=== PATIENT | male | born 1980 | race Caucasian/White ===

== ENCOUNTER → 2016-11-08 | Outpatient (CLI) | payer OTHER ==
[~2016-11-08] MED LIST: AMOXICILLIN500 MG PO; ANAPROX DS550 MG PO; ASPIRIN ADULT L81 M1 PO; AUGMENTIN 875 M1 TAB PO; BACTRIM DS 8001 TA1 PO; CEPHALEXIN500 M1 PO; CIPRO500 MG PO; CLEOCIN HCL300 MG PO; CLEOCIN150 MG PO; CLINDAMYCIN150 MG PO; COUMADIN4 M2 PO; DAYPRO600 M1 PO; HYDROCODONE BIT1 T11 PO; KEFLEX500 MG PO; MOTRIN600 MG PO; MOTRIN800 MG PO; NAPROSYN500 MG PO; NEURONTIN100 MG PO; NKHM PO; NO DAILY MEDS; NORCO 325 MG-51 TAB PO; PHENERGAN W/DM120 ML PO; PLAVIX75 MG PO; PROVENTIL0.09 MG/AC IH; TRAZODONE50 MG PO; ZITHROMAX Z PA250 MG PO
== END | disposition home or self-care (01) ==
LOC: RAD 09:46
DX: M85.88 Other specified disorders of bone density and structure, other site (principal); Z89.511 Acquired absence of right leg below knee

== ENCOUNTER 2017-06-04 18:22 | Emergency (ER) | payer OTHER ==
[~2017-06-04] VITALS: Ht 182.8 cm; Wt 72.6 kg
== END 2017-06-04 20:29 | disposition home or self-care (01) ==
LOC: ED 18:22
DX: S82.091A Other fracture of right patella, initial encounter for closed fracture (principal); F17.200 Nicotine dependence, unspecified, uncomplicated; Z79.899 Other long term (current) drug therapy; W01.198A Fall on same level from slipping, tripping and stumbling with subsequent striking against other object, initial encounter; Y93.89 Activity, other specified; Y92.89 Other specified places as the place of occurrence of the external cause; Y99.8 Other external cause status

== ENCOUNTER 2018-05-31 11:45 | Emergency (ER) | payer MEDICARE ==
[~2018-05-31] VITALS: Ht 182.8 cm; Wt 72.6 kg
[2018-05-31] MEDS ORDERED: AMOXICILLIN500 M2 PO (13:51)
[2018-05-31] MEDS ORDERED: LIDEX 0.05% CRE15 GM T (13:51)
[2018-05-31] MEDS ORDERED: FLONASE ALLERG9.9 ML NAS (13:51)
== END 2018-05-31 13:58 | disposition home or self-care (01) ==
LOC: ED 11:45
DX: J01.90 Acute sinusitis, unspecified (principal); L25.9 Unspecified contact dermatitis, unspecified cause; F17.200 Nicotine dependence, unspecified, uncomplicated; Z79.01 Long term (current) use of anticoagulants

== ENCOUNTER → 2018-07-12 | Outpatient (CLI) | payer MEDICAID ==
[~2018-07-12] MED LIST changes: +AMOXICILLIN500 M2 PO; +FLONASE ALLERG9.9 ML NAS; +LIDEX 0.05% CRE15 GM T
== END | disposition home or self-care (01) ==
LOC: RAD 10:51
DX: I82.409 Acute embolism and thrombosis of unspecified deep veins of unspecified lower extremity (principal); M25.532 Pain in left wrist

== ENCOUNTER 2019-03-25 15:04 | Emergency (ER) | payer MEDICAID ==
[~2019-03-25] VITALS: Ht 182.8 cm; Wt 68.0 kg
[2019-03-25] MEDS ORDERED: CEPHALEXIN500 M1 PO (15:36)
== END 2019-03-25 15:44 | disposition home or self-care (01) ==
LOC: ED 15:04
DX: L03.011 Cellulitis of right finger (principal); L03.012 Cellulitis of left finger; Z79.899 Other long term (current) drug therapy; Z79.01 Long term (current) use of anticoagulants; Z89.511 Acquired absence of right leg below knee

== ENCOUNTER 2019-05-03 07:20 | Emergency (ER) | payer OTHER ==
[~2019-05-03] VITALS: Ht 182.8 cm; Wt 72.6 kg
[2019-05-03] MEDS ORDERED: TRIPLE ANTIB28.35 GM T (08:55)
== END 2019-05-03 09:07 | disposition home or self-care (01) ==
LOC: ED 07:20
DX: S80.11XA Contusion of right lower leg, initial encounter (principal); Z89.511 Acquired absence of right leg below knee; Z79.01 Long term (current) use of anticoagulants; Z79.2 Long term (current) use of antibiotics; Z79.899 Other long term (current) drug therapy; Z87.891 Personal history of nicotine dependence; W18.30XA Fall on same level, unspecified, initial encounter; Y93.89 Activity, other specified; Y92.098 Other place in other non-institutional residence as the place of occurrence of the external cause; Y99.8 Other external cause status

== ENCOUNTER 2020-08-03 07:54 | Inpatient (IN) | payer OTHER ==
[~2020-08-03] VITALS: Ht 182.9 cm; Wt 73.6 kg
[~2020-08-03 07:54] MED LIST changes: +TRIPLE ANTIB28.35 GM T
[2020-08-03 08:07] VITALS: BP 136/98
[2020-08-03 09:27] LABS: BASO # 0.1 10*3/uL (0.0-0.1); BASO % 0.7 % (0.0-1.0); EOS # 0.5 10*3/uL (0.0-0.4); EOS % 5.5 % (1.0-4.0); HEMATOCRIT 39.3 % (42.0-52.0); LYMPH # 2.4 10*3/uL (1.3-4.4); LYMPH % 29.1 % (27.0-41.0); MEAN CELL VOLUME 80.7 fl (80.0-94.0); MEAN CORPUSCULAR HGB 26.1 pg (27.0-31.0); MEAN CORPUSCULAR HGB CONC 32.3 g/dl (33.0-37.0); MEAN PLATELET VOLUME 9.2 fl (9.6-12.3); MONO # 0.7 10*3/uL (0.1-1.0); MONO % 8.3 % (3.0-9.0); NEUT # 4.6 10*3/uL (2.3-7.9); NEUT % 56.2 % (47.0-73.0); PLATELET COUNT AUTOMATED 360 10*3/uL (130-400); RED BLOOD COUNT 4.87 10*6/uL (4.50-5.90); RED CELL DISTRI WIDTH 17.1 % (0-14.5); WHITE BLOOD COUNT 8.2 10*3/uL (4.8-10.8)
[2020-08-03 09:38] LABS: ACT PARTIAL THROMBO TIME 25.6 SECONDS (20.0-32.1)
[2020-08-03 09:42] LABS: ALBUMIN 3.6 gm/dl (3.1-4.5); ALKALINE PHOSPHATASE 79 U/L (45-117); BUN 9 mg/dl (7-24); CHLORIDE 102 mmol/L (98-107); CREATININE 1.19 mg/dL (0.70-1.30); POTASSIUM 3.1 mmol/L (3.5-5.1); SGOT/AST 48 IU/L (3-35); SGPT/ALT 22 U/L (12-78); SODIUM 134 mmol/L (136-145); TOTAL PROTEIN 7.7 gm/dL (6.4-8.2)
[2020-08-03 10:53] VITALS: BP 140/92
[2020-08-03] MEDS ORDERED: GABAPENTIN800 MG PO (16:17)
[2020-08-03] MEDS ORDERED: ASPIRIN CHEWABL81 MG PO (16:18)
[2020-08-03] MEDS ORDERED: OMEPRAZOLE20 M2 PO (16:18)
[2020-08-03 18:00] VITALS: BP 140/92
[2020-08-03 20:00] VITALS: BP 136/85
[2020-08-04] VITALS: BP 122/78
[2020-08-04 06:45] LABS: BASO # 0.1 10*3/uL (0.0-0.1); EOS # 0.3 10*3/uL (0.0-0.4); EOS % 3.8 % (1.0-4.0); LYMPH # 2.3 10*3/uL (1.3-4.4); LYMPH % 25.8 % (27.0-41.0); MEAN CELL VOLUME 81.6 fl (80.0-94.0); MEAN CORPUSCULAR HGB 26.1 pg (27.0-31.0); MEAN CORPUSCULAR HGB CONC 31.9 g/dl (33.0-37.0); MEAN PLATELET VOLUME 9.6 fl (9.6-12.3); MONO # 0.7 10*3/uL (0.1-1.0); MONO % 7.8 % (3.0-9.0); NEUT # 5.4 10*3/uL (2.3-7.9); NEUT % 61.4 % (47.0-73.0); PLATELET COUNT AUTOMATED 363 10*3/uL (130-400); RED BLOOD COUNT 4.41 10*6/uL (4.50-5.90); RED CELL DISTRI WIDTH 17.2 % (0-14.5); WHITE BLOOD COUNT 8.8 10*3/uL (4.8-10.8)
[2020-08-04 07:11] LABS: ALBUMIN 3.2 gm/dl (3.1-4.5); BUN 8 mg/dl (7-24); CHLORIDE 110 mmol/L (98-107); POTASSIUM 3.5 mmol/L (3.5-5.1); SGOT/AST 32 IU/L (3-35); SGPT/ALT 21 U/L (12-78); SODIUM 139 mmol/L (136-145); TOTAL PROTEIN 6.9 gm/dL (6.4-8.2); TRIGLYCERIDES 109 mg/dl (<150); VLDL CHOLESTEROL 22 mg/dL (6-40)
[2020-08-04 07:13] LABS: ALKALINE PHOSPHATASE 70 U/L (45-117); CHOLESTEROL 155 mg/dL (<200); HDL CHOLESTEROL 43 mg/dl (40-60); LDL CHOLESTEROL 90 mg/dL (9-159)
[2020-08-04 08:10] VITALS: BP 140/96
[2020-08-04 12:00] VITALS: BP 156/96
[2020-08-04 16:00] VITALS: BP 147/92
== END 2020-08-04 16:23 | disposition left against medical advice (07) | DRG 349 ==
LOC: ED 07:54 → EDHOLD 09:06 → 5E 09:06 → EDHOLD 11:23 → 5E 16:25
PROVIDERS: Emergency Medicine; ADMIT Student in an Organized Health Care Education/Training Program; ATTEND Student in an Organized Health Care Education/Training Program
DX: T87.42 Infection of amputation stump, left upper extremity (principal); D64.9 Anemia, unspecified; E87.6 Hypokalemia; R79.82 Elevated C-reactive protein (CRP); F17.210 Nicotine dependence, cigarettes, uncomplicated; R00.0 Tachycardia, unspecified; Y83.5 Amputation of limb(s) as the cause of abnormal reaction of the patient, or of later complication, without mention of misadventure at the time of the procedure; Z20.822 Contact with and (suspected) exposure to COVID-19; Z53.29 Procedure and treatment not carried out because of patient's decision for other reasons; N02.8 Recurrent and persistent hematuria with other morphologic changes; Z89.511 Acquired absence of right leg below knee; Z71.6 Tobacco abuse counseling; Z79.82 Long term (current) use of aspirin; Z79.899 Other long term (current) drug therapy; Y92.89 Other specified places as the place of occurrence of the external cause; L03.012 Cellulitis of left finger

== ENCOUNTER 2021-01-31 11:00 | Observation (INO) | payer OTHER ==
[~2021-01-31] VITALS: Ht 182.9 cm; Wt 77.1 kg
[~2021-01-31 11:00] MED LIST changes: +ASPIRIN CHEWABL81 MG PO; +GABAPENTIN800 MG PO; +OMEPRAZOLE20 M2 PO
[2021-01-31 11:07] VITALS: BP 153/90
[2021-01-31 11:41] LABS: BASO # 0.1 10*3/uL (0.0-0.1); BASO % 0.7 % (0.0-1.0); EOS # 0.7 10*3/uL (0.0-0.4); EOS % 5.2 % (1.0-4.0); HEMATOCRIT 48.3 % (42.0-52.0); LYMPH # 2.3 10*3/uL (1.3-4.4); LYMPH % 16.9 % (27.0-41.0); MEAN CELL VOLUME 89.3 fl (80.0-94.0); MEAN CORPUSCULAR HGB 29.9 pg (27.0-31.0); MEAN CORPUSCULAR HGB CONC 33.5 g/dl (33.0-37.0); MEAN PLATELET VOLUME 9.4 fl (9.6-12.3); MONO # 1.1 10*3/uL (0.1-1.0); MONO % 8.5 % (3.0-9.0); NEUT # 9.1 10*3/uL (2.3-7.9); NEUT % 68.3 % (47.0-73.0); PLATELET COUNT AUTOMATED 390 10*3/uL (130-400); RED BLOOD COUNT 5.41 10*6/uL (4.50-5.90); RED CELL DISTRI WIDTH 13.7 % (0-14.5); WHITE BLOOD COUNT 13.4 10*3/uL (4.8-10.8)
[2021-01-31] MEDS ORDERED: ZOFRAN4 MG PO (11:55)
[2021-01-31 11:57] LABS: ALBUMIN 3.8 gm/dl (3.1-4.5); ALKALINE PHOSPHATASE 100 U/L (45-117); BUN 6 mg/dl (7-24); CHLORIDE 98 mmol/L (98-107); CREATININE 1.14 mg/dL (0.70-1.30); LIPASE 100 U/L (73-393); POTASSIUM 3.4 mmol/L (3.5-5.1); SGOT/AST 25 IU/L (3-35); SGPT/ALT 43 U/L (12-78); SODIUM 136 mmol/L (136-145); TOTAL PROTEIN 8.9 gm/dL (6.4-8.2)
[2021-01-31 14:24] LABS: BILIRUBIN Negative (Negative); BLOOD Negative (Negative); CLARITY Clear (Clear); COLOR Yellow (Yellow); GLUCOSE Negative (Negative); KETONE Negative (Negative); LEUKO ESTERASE Negative (Negative); NITRITE Negative (Negative); PH 6.5 (4.5-8.0)
[2021-01-31 14:31] LABS: BACTERIA TRACE; EPITHELIAL CELLS 0-2; RBC 0-2 rbc/hpf (0-2); WBC 0-2 wbc/hpf (0-5)
[2021-01-31 14:32] LABS: URINE AMPHETAMINES < 1000 (1000ng/ml); URINE BARBITURATES < 200 (200ng/ml); URINE BENZODIAZEPINES < 200 (200ng/ml); URINE CANNABINOIDS (THC) > 50 (50ng/ml); URINE COCAINE > 300 (300ng/ml); URINE METHADONE < 300 (300ng/ml); URINE OPIATES < 300 (300ng/ml)
[2021-01-31 14:38] LABS: URINE PHENCYCLIDINE < 25 (25ng/ml)
[2021-01-31 15:30] VITALS: BP 144/87
[2021-01-31 20:07] VITALS: BP 132/72
[2021-02-01 06:27] LABS: BASO # 0.1 10*3/uL (0.0-0.1); BASO % 1.1 % (0.0-1.0); EOS # 0.7 10*3/uL (0.0-0.4); EOS % 6.9 % (1.0-4.0); HEMATOCRIT 41.1 % (42.0-52.0); LYMPH # 2.6 10*3/uL (1.3-4.4); LYMPH % 25.1 % (27.0-41.0); MEAN CORPUSCULAR HGB 29.7 pg (27.0-31.0); MEAN CORPUSCULAR HGB CONC 33.3 g/dl (33.0-37.0); MEAN PLATELET VOLUME 9.5 fl (9.6-12.3); MONO # 0.9 10*3/uL (0.1-1.0); MONO % 8.8 % (3.0-9.0); NEUT % 57.6 % (47.0-73.0); PLATELET COUNT AUTOMATED 350 10*3/uL (130-400); RED BLOOD COUNT 4.62 10*6/uL (4.50-5.90); WHITE BLOOD COUNT 10.4 10*3/uL (4.8-10.8)
[2021-02-01 06:43] LABS: ALBUMIN 2.9 gm/dl (3.1-4.5); ALKALINE PHOSPHATASE 74 U/L (45-117); BUN 6 mg/dl (7-24); CHLORIDE 106 mmol/L (98-107); CREATININE 0.92 mg/dL (0.70-1.30); POTASSIUM 3.7 mmol/L (3.5-5.1); SGOT/AST 14 IU/L (3-35); SGPT/ALT 32 U/L (12-78); SODIUM 141 mmol/L (136-145)
[2021-02-01] MEDS ORDERED: DELZICOL400 M2 PO ×2 (10:44)
[2021-02-01] MEDS ORDERED: METRONIDAZOLE500 M1 PO ×2 (10:44)
[2021-02-01] MEDS ORDERED: CIPROFLOXACIN500 M4 PO ×2 (10:44)
[2021-02-01 12:00] VITALS: BP 182/95
== END 2021-02-01 14:17 | disposition home or self-care (01) ==
LOC: ED 11:00 → 5E 15:16 → EDHOLD 15:16 → 5E 02-01 07:17
PROVIDERS: Emergency Medicine; Internal Medicine; ADMIT Family Medicine; ATTEND Family Medicine
DX: K52.9 Noninfective gastroenteritis and colitis, unspecified (principal); E87.2 Acidosis; E87.6 Hypokalemia; F14.10 Cocaine abuse, uncomplicated; F15.10 Other stimulant abuse, uncomplicated; F12.10 Cannabis abuse, uncomplicated; D72.829 Elevated white blood cell count, unspecified; E44.1 Mild protein-calorie malnutrition; N40.0 Benign prostatic hyperplasia without lower urinary tract symptoms; N02.8 Recurrent and persistent hematuria with other morphologic changes; R79.89 Other specified abnormal findings of blood chemistry; F17.210 Nicotine dependence, cigarettes, uncomplicated; Z79.899 Other long term (current) drug therapy; Z71.6 Tobacco abuse counseling; Z79.01 Long term (current) use of anticoagulants

== ENCOUNTER → 2021-03-11 | Day surgery (SDC) | payer OTHER ==
[~2021-03-11] VITALS: Ht 182.8 cm; Wt 77.1 kg
[~2021-03-11] MED LIST changes: +CIPROFLOXACIN500 M4 PO; +DELZICOL400 M2 PO; +METRONIDAZOLE500 M1 PO; +ZOFRAN4 MG PO
== END | disposition home or self-care (01) ==
LOC: SDC 03-08 08:00
PROVIDERS: ATTEND Surgery
DX: Z01.818 Encounter for other preprocedural examination (principal); Z20.822 Contact with and (suspected) exposure to COVID-19

== ENCOUNTER 2021-04-14 15:26 | Emergency (ER) | payer OTHER ==
[~2021-04-14] VITALS: Ht 182.8 cm; Wt 77.1 kg
[2021-04-14] MEDS ORDERED: NAPROXEN250 MG PO ×2 (17:09)
[2021-04-14] MEDS ORDERED: SEPTDS PO ×2 (17:09)
[2021-04-14] MEDS ORDERED: TYLENOL325 M1 PO ×2 (17:09)
[2021-05-06] MEDS ORDERED: PERCOCET 5-3251 EACH PO (08:29)
== END 2021-04-14 17:17 | disposition home or self-care (01) ==
LOC: ED 15:26
DX: I73.1 Thromboangiitis obliterans [Buerger's disease] (principal); L08.9 Local infection of the skin and subcutaneous tissue, unspecified; F17.200 Nicotine dependence, unspecified, uncomplicated; Z79.899 Other long term (current) drug therapy; Z79.82 Long term (current) use of aspirin; Z98.890 Other specified postprocedural states

== ENCOUNTER → 2021-05-06 | Day surgery (SDC) | payer OTHER ==
[2021-05-05 14:50] LABS: BASO # 0.1 10*3/uL (0.0-0.1); BASO % 1.1 % (0.0-1.0); EOS # 0.2 10*3/uL (0.0-0.4); EOS % 2.7 % (1.0-4.0); LYMPH # 2.7 10*3/uL (1.3-4.4); LYMPH % 32.5 % (27.0-41.0); MEAN CELL VOLUME 89.1 fl (80.0-94.0); MEAN CORPUSCULAR HGB 29.2 pg (27.0-31.0); MEAN CORPUSCULAR HGB CONC 32.8 g/dl (33.0-37.0); MEAN PLATELET VOLUME 9.8 fl (9.6-12.3); MONO # 0.6 10*3/uL (0.1-1.0); MONO % 7.4 % (3.0-9.0); NEUT # 4.7 10*3/uL (2.3-7.9); NEUT % 56.2 % (47.0-73.0); PLATELET COUNT AUTOMATED 255 10*3/uL (130-400); RED BLOOD COUNT 4.49 10*6/uL (4.50-5.90); RED CELL DISTRI WIDTH 14.6 % (0-14.5); WHITE BLOOD COUNT 8.4 10*3/uL (4.8-10.8)
[2021-05-05 15:05] LABS: BUN 7 mg/dl (7-24); CHLORIDE 106 mmol/L (98-107); CREATININE 0.95 mg/dL (0.70-1.30); POTASSIUM 3.7 mmol/L (3.5-5.1); SODIUM 139 mmol/L (136-145)
[~2021-05-06] VITALS: Ht 182.8 cm; Wt 76.7 kg
[~2021-05-06] MED LIST changes: +NAPROXEN250 MG PO; +PERCOCET 5-3251 EACH PO; +SEPTDS PO; +TYLENOL325 M1 PO
[2021-05-06 06:45] VITALS: BP 138/92
[2021-05-06 08:09] VITALS: BP 118/78
[2021-05-06 08:24] VITALS: BP 127/82
[2021-05-06 08:39] VITALS: BP 119/77
== END | disposition home or self-care (01) ==
LOC: SDC 05-05 08:45
PROVIDERS: ATTEND Orthopaedic Surgery
DX: N02.8 Recurrent and persistent hematuria with other morphologic changes (principal); I96 Gangrene, not elsewhere classified; K21.9 Gastro-esophageal reflux disease without esophagitis; F17.200 Nicotine dependence, unspecified, uncomplicated; Z79.899 Other long term (current) drug therapy

== ENCOUNTER 2021-08-13 13:24 | Emergency (ER) | payer OTHER ==
[~2021-08-13] VITALS: Ht 182.8 cm; Wt 72.6 kg
[2021-08-13 14:23] LABS: BASO # 0.1 10*3/uL (0.0-0.1); BASO % 0.3 % (0.0-1.0); EOS % 0.2 % (1.0-4.0); HEMATOCRIT 45.4 % (42.0-52.0); LYMPH # 1.5 10*3/uL (1.3-4.4); LYMPH % 8.3 % (27.0-41.0); MEAN CELL VOLUME 86.8 fl (80.0-94.0); MEAN CORPUSCULAR HGB 29.4 pg (27.0-31.0); MEAN CORPUSCULAR HGB CONC 33.9 g/dl (33.0-37.0); MEAN PLATELET VOLUME 9.4 fl (9.6-12.3); MONO # 1.1 10*3/uL (0.1-1.0); MONO % 5.7 % (3.0-9.0); NEUT # 15.9 10*3/uL (2.3-7.9); NEUT % 85.2 % (47.0-73.0); PLATELET COUNT AUTOMATED 312 10*3/uL (130-400); RED BLOOD COUNT 5.23 10*6/uL (4.50-5.90); WHITE BLOOD COUNT 18.6 10*3/uL (4.8-10.8)
[2021-08-13 14:40] LABS: ALKALINE PHOSPHATASE 81 U/L (45-117); BUN 14 mg/dl (7-24); CHLORIDE 101 mmol/L (98-107); CREATININE 1.02 mg/dL (0.70-1.30); LIPASE 180 U/L (73-393); POTASSIUM 3.6 mmol/L (3.5-5.1); SGOT/AST 21 IU/L (3-35); SGPT/ALT 21 U/L (12-78); SODIUM 136 mmol/L (136-145); TOTAL PROTEIN 8.5 gm/dL (6.4-8.2)
[2021-08-13 15:10] LABS: BILIRUBIN 1+ (Negative); BLOOD Negative (Negative); CLARITY Turbid (Clear); COLOR Dark Yellow (Yellow); GLUCOSE Negative (Negative); KETONE 3+ (Negative); LEUKO ESTERASE 1+ (Negative); NITRITE Negative (Negative); SPECIFIC GRAVITY >= 1.030 (1.001-1.030)
[2021-08-13 15:38] LABS: BACTERIA 1+; MUCOUS 2+; RBC 0-2 rbc/hpf (0-2)
[2021-08-13] MEDS ORDERED: ZOFRAN4 MG PO (17:10)
[2021-08-13] MEDS ORDERED: CEFUROXIME AXE500 MG PO (17:14)
== END 2021-08-13 17:35 | disposition home or self-care (01) ==
LOC: ED 13:24
PROVIDERS: Family Medicine
DX: A08.4 Viral intestinal infection, unspecified (principal); N39.0 Urinary tract infection, site not specified; Z79.899 Other long term (current) drug therapy; F17.200 Nicotine dependence, unspecified, uncomplicated

== ENCOUNTER 2021-09-07 11:56 | Emergency (ER) | payer OTHER ==
[~2021-09-07] VITALS: Ht 182.8 cm; Wt 74.8 kg
[~2021-09-07 11:56] MED LIST changes: +CEFUROXIME AXE500 MG PO
[2021-09-07] MEDS ORDERED: AMOX-CLAV 875-1 EACH PO (12:04)
[2021-09-07 15:09] LABS: BASO # 0.1 10*3/uL (0.0-0.1); BASO % 0.9 % (0.0-1.0); EOS # 0.5 10*3/uL (0.0-0.4); EOS % 4.8 % (1.0-4.0); HEMATOCRIT 44.5 % (42.0-52.0); LYMPH # 2.3 10*3/uL (1.3-4.4); LYMPH % 24.4 % (27.0-41.0); MEAN CELL VOLUME 89.2 fl (80.0-94.0); MEAN CORPUSCULAR HGB 29.5 pg (27.0-31.0); MEAN PLATELET VOLUME 9.1 fl (9.6-12.3); MONO # 0.8 10*3/uL (0.1-1.0); MONO % 8.1 % (3.0-9.0); NEUT # 5.8 10*3/uL (2.3-7.9); NEUT % 61.6 % (47.0-73.0); PLATELET COUNT AUTOMATED 315 10*3/uL (130-400); RED BLOOD COUNT 4.99 10*6/uL (4.50-5.90); RED CELL DISTRI WIDTH 14.8 % (0-14.5); WHITE BLOOD COUNT 9.4 10*3/uL (4.8-10.8)
[2021-09-07 15:28] LABS: ALKALINE PHOSPHATASE 78 U/L (45-117); BUN 7 mg/dl (7-24); CHLORIDE 106 mmol/L (98-107); CREATININE 0.81 mg/dL (0.70-1.30); SGOT/AST 18 IU/L (3-35); SGPT/ALT 16 U/L (12-78); SODIUM 140 mmol/L (136-145); TOTAL PROTEIN 7.7 gm/dL (6.4-8.2)
[2021-09-09] MEDS ORDERED: ERTAPENEM1 GM IV (21:39)
[2021-09-09] MEDS ORDERED: VANCO 1.51.5 GM/250 IV (21:39)
== END 2021-09-07 19:30 | disposition home or self-care (01) ==
LOC: ED 11:56
PROVIDERS: Physician Assistant
DX: S68.119A Complete traumatic metacarpophalangeal amputation of unspecified finger, initial encounter (principal); Z79.899 Other long term (current) drug therapy; F17.200 Nicotine dependence, unspecified, uncomplicated; X58.XXXA Exposure to other specified factors, initial encounter; Y93.89 Activity, other specified; Y92.89 Other specified places as the place of occurrence of the external cause; Y99.8 Other external cause status

== ENCOUNTER 2021-09-08 15:15 | Inpatient (IN) | payer OTHER ==
[~2021-09-08] VITALS: Ht 182.8 cm; Wt 67.3 kg
[~2021-09-08 15:15] MED LIST changes: +AMOX-CLAV 875-1 EACH PO
[2021-09-08 16:00] VITALS: BP 143/99
[2021-09-08 16:25] LABS: BASO # 0.1 10*3/uL (0.0-0.1); BASO % 0.9 % (0.0-1.0); EOS # 0.4 10*3/uL (0.0-0.4); EOS % 2.9 % (1.0-4.0); LYMPH # 2.6 10*3/uL (1.3-4.4); LYMPH % 20.5 % (27.0-41.0); MEAN CELL VOLUME 87.5 fl (80.0-94.0); MEAN CORPUSCULAR HGB 29.4 pg (27.0-31.0); MEAN CORPUSCULAR HGB CONC 33.6 g/dl (33.0-37.0); MEAN PLATELET VOLUME 9.1 fl (9.6-12.3); MONO # 0.8 10*3/uL (0.1-1.0); MONO % 6.5 % (3.0-9.0); NEUT # 8.7 10*3/uL (2.3-7.9); NEUT % 68.9 % (47.0-73.0); PLATELET COUNT AUTOMATED 326 10*3/uL (130-400); RED BLOOD COUNT 5.14 10*6/uL (4.50-5.90); RED CELL DISTRI WIDTH 14.6 % (0-14.5); WHITE BLOOD COUNT 12.6 10*3/uL (4.8-10.8)
[2021-09-08 16:40] LABS: ALKALINE PHOSPHATASE 77 U/L (45-117); BUN 11 mg/dl (7-24); CHLORIDE 106 mmol/L (98-107); CREATININE 0.87 mg/dL (0.70-1.30); POTASSIUM 4.1 mmol/L (3.5-5.1); SGOT/AST 12 IU/L (3-35); SGPT/ALT 18 U/L (12-78); SODIUM 138 mmol/L (136-145); TOTAL PROTEIN 7.8 gm/dL (6.4-8.2)
[2021-09-08 20:00] VITALS: BP 137/86
[2021-09-09] VITALS (8 sets, daily range): BP systolic 130–166; BP diastolic 71–98
[2021-09-09 06:06] LABS: ALKALINE PHOSPHATASE 72 U/L (45-117); BUN 15 mg/dl (7-24); CHLORIDE 105 mmol/L (98-107); CREATININE 0.97 mg/dL (0.70-1.30); POTASSIUM 4.1 mmol/L (3.5-5.1); SGOT/AST 15 IU/L (3-35); SGPT/ALT 17 U/L (12-78); SODIUM 140 mmol/L (136-145); TOTAL PROTEIN 7.4 gm/dL (6.4-8.2)
[2021-09-09 06:07] LABS: BASO # 0.1 10*3/uL (0.0-0.1); BASO % 0.9 % (0.0-1.0); EOS # 0.5 10*3/uL (0.0-0.4); EOS % 4.9 % (1.0-4.0); HEMATOCRIT 44.1 % (42.0-52.0); LYMPH # 3.2 10*3/uL (1.3-4.4); LYMPH % 33.6 % (27.0-41.0); MEAN CELL VOLUME 88.2 fl (80.0-94.0); MEAN CORPUSCULAR HGB 29.4 pg (27.0-31.0); MEAN CORPUSCULAR HGB CONC 33.3 g/dl (33.0-37.0); MEAN PLATELET VOLUME 9.6 fl (9.6-12.3); MONO # 0.9 10*3/uL (0.1-1.0); MONO % 8.9 % (3.0-9.0); NEUT # 4.9 10*3/uL (2.3-7.9); NEUT % 51.4 % (47.0-73.0); PLATELET COUNT AUTOMATED 331 10*3/uL (130-400); RED CELL DISTRI WIDTH 14.8 % (0-14.5); WHITE BLOOD COUNT 9.6 10*3/uL (4.8-10.8)
[2021-09-09 06:14] LABS: ACT PARTIAL THROMBO TIME 27.5 SECONDS (20.0-32.1)
[2021-09-09] MEDS ORDERED: ERTAPENEM1 GM IV ×2 (21:39)
[2021-09-09] MEDS ORDERED: VANCO 1.51.5 GM/250 IV ×2 (21:39)
[2021-09-10] VITALS: BP 116/68
[2021-09-10 06:10] LABS: BASO % 0.3 % (0.0-1.0); EOS # 0.1 10*3/uL (0.0-0.4); EOS % 0.5 % (1.0-4.0); HEMATOCRIT 41.2 % (42.0-52.0); LYMPH # 2.9 10*3/uL (1.3-4.4); LYMPH % 23.5 % (27.0-41.0); MEAN CELL VOLUME 88.2 fl (80.0-94.0); MEAN CORPUSCULAR HGB 29.1 pg (27.0-31.0); MEAN PLATELET VOLUME 9.8 fl (9.6-12.3); MONO # 0.9 10*3/uL (0.1-1.0); MONO % 7.8 % (3.0-9.0); NEUT # 8.2 10*3/uL (2.3-7.9); NEUT % 67.6 % (47.0-73.0); PLATELET COUNT AUTOMATED 331 10*3/uL (130-400); RED BLOOD COUNT 4.67 10*6/uL (4.50-5.90); RED CELL DISTRI WIDTH 14.3 % (0-14.5); WHITE BLOOD COUNT 12.1 10*3/uL (4.8-10.8)
[2021-09-10 08:00] VITALS: BP 116/66
[2021-09-10 12:00] VITALS: BP 118/56
[2021-09-10 13:07] LABS: ACID FAST SPEC PROCESSING Tissue Grinding (.)
[2021-09-10 16:00] VITALS: BP 130/63
[2021-09-10 20:00] VITALS: BP 123/73
[2021-09-11] VITALS: BP 123/78
[2021-09-11 06:08] LABS: BASO # 0.1 10*3/uL (0.0-0.1); BASO % 0.9 % (0.0-1.0); EOS # 0.4 10*3/uL (0.0-0.4); EOS % 4.4 % (1.0-4.0); LYMPH # 3.5 10*3/uL (1.3-4.4); LYMPH % 41.1 % (27.0-41.0); MEAN CELL VOLUME 89.3 fl (80.0-94.0); MEAN CORPUSCULAR HGB CONC 32.4 g/dl (33.0-37.0); MEAN PLATELET VOLUME 9.7 fl (9.6-12.3); MONO # 0.7 10*3/uL (0.1-1.0); MONO % 8.3 % (3.0-9.0); NEUT # 3.9 10*3/uL (2.3-7.9); NEUT % 45.1 % (47.0-73.0); PLATELET COUNT AUTOMATED 319 10*3/uL (130-400); RED BLOOD COUNT 4.59 10*6/uL (4.50-5.90); RED CELL DISTRI WIDTH 14.6 % (0-14.5); WHITE BLOOD COUNT 8.6 10*3/uL (4.8-10.8)
[2021-09-11 08:00] VITALS: BP 136/83
[2021-09-11 12:00] VITALS: BP 108/63
[2021-09-11] MEDS ORDERED: LEVOFLOXACIN750 M2 PO (15:20)
[2021-09-11] MEDS ORDERED: DALVANCE500 MG IV (15:20)
[2021-09-11] MEDS ORDERED: METRONIDAZOLE500 M1 PO (15:20)
[2021-09-11 16:00] VITALS: BP 112/51
== END 2021-09-11 18:42 | disposition left against medical advice (07) | DRG 316 ==
LOC: 4E 15:15
PROVIDERS: Internal Medicine; Orthopaedic Surgery; ADMIT Internal Medicine; ATTEND Internal Medicine
PROC: 0X6R0Z2 Detachment at Left Middle Finger, Mid, Open Approach (ICD-10-PCS; principal; 2021-09-09)
PROC: 3E0T3BZ Introduction of Anesthetic Agent into Peripheral Nerves and Plexi, Percutaneous Approach (ICD-10-PCS; 2021-09-09)
PROC: 3E0T33Z Introduction of Anti-inflammatory into Peripheral Nerves and Plexi, Percutaneous Approach (ICD-10-PCS; 2021-09-09)
PROC: 02HV33Z Insertion of Infusion Device into Superior Vena Cava, Percutaneous Approach (ICD-10-PCS; 2021-09-10)
PROC: B548ZZA Ultrasonography of Superior Vena Cava, Guidance (ICD-10-PCS; 2021-09-10)
DX: M86.8X4 Other osteomyelitis, hand (principal); I73.1 Thromboangiitis obliterans [Buerger's disease]; F17.210 Nicotine dependence, cigarettes, uncomplicated; Z71.6 Tobacco abuse counseling; N40.0 Benign prostatic hyperplasia without lower urinary tract symptoms; Z53.29 Procedure and treatment not carried out because of patient's decision for other reasons; Z79.899 Other long term (current) drug therapy; D72.829 Elevated white blood cell count, unspecified

== ENCOUNTER → 2021-10-06 | Outpatient (CLI) | payer OTHER ==
[~2021-10-06] MED LIST changes: +DALVANCE500 MG IV; +ERTAPENEM1 GM IV; +LEVOFLOXACIN750 M2 PO; +VANCO 1.51.5 GM/250 IV
== END | disposition home or self-care (01) ==
LOC: ORTHO 02:27
PROVIDERS: ATTEND Orthopaedic Surgery
DX: M86.142 Other acute osteomyelitis, left hand (principal); Z89.022 Acquired absence of left finger(s)

== ENCOUNTER 2022-03-21 08:09 | Emergency (ER) | payer OTHER ==
[~2022-03-21] VITALS: Ht 182.8 cm; Wt 71.7 kg
[2022-03-21 12:18] LABS: BASO # 0.1 10*3/uL (0.0-0.1); BASO % 1.4 % (0.0-1.0); EOS # 0.3 10*3/uL (0.0-0.4); EOS % 4.9 % (1.0-4.0); HEMATOCRIT 43.4 % (42.0-52.0); LYMPH # 2.4 10*3/uL (1.3-4.4); LYMPH % 35.9 % (27.0-41.0); MEAN CELL VOLUME 90.2 fl (80.0-94.0); MEAN CORPUSCULAR HGB 29.1 pg (27.0-31.0); MEAN CORPUSCULAR HGB CONC 32.3 g/dl (33.0-37.0); MEAN PLATELET VOLUME 9.1 fl (9.6-12.3); MONO # 0.6 10*3/uL (0.1-1.0); MONO % 9.1 % (3.0-9.0); NEUT # 3.2 10*3/uL (2.3-7.9); NEUT % 48.5 % (47.0-73.0); PLATELET COUNT AUTOMATED 285 10*3/uL (130-400); RED BLOOD COUNT 4.81 10*6/uL (4.50-5.90); RED CELL DISTRI WIDTH 14.5 % (0-14.5); WHITE BLOOD COUNT 6.6 10*3/uL (4.8-10.8)
[2022-03-21 12:30] LABS: ACT PARTIAL THROMBO TIME 25.1 SECONDS (20.0-32.1)
[2022-03-21 12:36] LABS: ALKALINE PHOSPHATASE 71 U/L (46-116); BUN 7 mg/dl (9-23); CHLORIDE 103 mmol/L (98-107); CREATININE 0.88 mg/dL (0.70-1.30); POTASSIUM 4.6 mmol/L (3.4-5.1); SGPT/ALT 10 U/L (10-49); SODIUM 140 mmol/L (136-145); TOTAL PROTEIN 6.9 gm/dL (6.0-8.0)
== END 2022-03-21 12:45 | disposition home or self-care (01) ==
LOC: ED 08:09
PROVIDERS: Emergency Medicine
DX: I73.9 Peripheral vascular disease, unspecified (principal)

== ENCOUNTER → 2022-03-29 | Outpatient (CLI) | payer OTHER ==
[2022-03-29 16:46] LABS: BASO # 0.1 10*3/uL (0.0-0.1); BASO % 0.8 % (0.0-1.0); EOS # 0.2 10*3/uL (0.0-0.4); EOS % 2.7 % (1.0-4.0); LYMPH # 2.6 10*3/uL (1.3-4.4); LYMPH % 29.9 % (27.0-41.0); MEAN CELL VOLUME 88.9 fl (80.0-94.0); MEAN CORPUSCULAR HGB 29.7 pg (27.0-31.0); MEAN CORPUSCULAR HGB CONC 33.4 g/dl (33.0-37.0); MEAN PLATELET VOLUME 9.3 fl (9.6-12.3); MONO # 0.7 10*3/uL (0.1-1.0); MONO % 8.4 % (3.0-9.0); NEUT # 4.9 10*3/uL (2.3-7.9); PLATELET COUNT AUTOMATED 274 10*3/uL (130-400); RED BLOOD COUNT 4.95 10*6/uL (4.50-5.90); RED CELL DISTRI WIDTH 14.8 % (0-14.5); WHITE BLOOD COUNT 8.5 10*3/uL (4.8-10.8)
[2022-03-29 16:58] LABS: BUN 7 mg/dl (9-23); CHLORIDE 98 mmol/L (98-107); CREATININE 1.08 mg/dL (0.70-1.30); POTASSIUM 3.3 mmol/L (3.4-5.1); SODIUM 136 mmol/L (136-145)
== END | disposition home or self-care (01) ==
LOC: LAB 16:03
PROVIDERS: ATTEND Surgery Vascular Surgery
DX: Z01.812 Encounter for preprocedural laboratory examination (principal)

== ENCOUNTER 2022-04-11 04:41 | Emergency (ER) | payer OTHER ==
[~2022-04-11] VITALS: Ht 180.3 cm; Wt 68.0 kg
[2022-04-11 05:32] LABS: ALKALINE PHOSPHATASE 69 U/L (46-116); BUN 12 mg/dl (9-23); CHLORIDE 101 mmol/L (98-107); ETHYL ALCOHOL 3.4 mg/dl (<3); POTASSIUM 3.8 mmol/L (3.4-5.1); TOTAL PROTEIN 7.2 gm/dL (6.0-8.0)
[2022-04-11 05:35] LABS: SGPT/ALT < 7 U/L (10-49)
[2022-04-11 06:06] LABS: BASO # 0.1 10*3/uL (0.0-0.1); BASO % 1.3 % (0.0-1.0); EOS # 0.6 10*3/uL (0.0-0.4); EOS % 6.7 % (1.0-4.0); HEMATOCRIT 40.6 % (42.0-52.0); LYMPH # 2.6 10*3/uL (1.3-4.4); LYMPH % 29.9 % (27.0-41.0); MEAN CELL VOLUME 88.3 fl (80.0-94.0); MEAN CORPUSCULAR HGB 29.6 pg (27.0-31.0); MEAN CORPUSCULAR HGB CONC 33.5 g/dl (33.0-37.0); MEAN PLATELET VOLUME 9.1 fl (9.6-12.3); MONO # 0.9 10*3/uL (0.1-1.0); MONO % 10.3 % (3.0-9.0); NEUT # 4.4 10*3/uL (2.3-7.9); NEUT % 50.9 % (47.0-73.0); PLATELET COUNT AUTOMATED 370 10*3/uL (130-400); RED CELL DISTRI WIDTH 14.7 % (0-14.5); WHITE BLOOD COUNT 8.7 10*3/uL (4.8-10.8)
[2022-04-11 10:39] LABS: BILIRUBIN Negative (Negative); BLOOD Negative (Negative); CLARITY Clear (Clear); COLOR Yellow (Yellow); GLUCOSE Negative (Negative); KETONE Negative (Negative); LEUKO ESTERASE Negative (Negative); NITRITE Negative (Negative)
[2022-04-11 10:49] LABS: URINE AMPHETAMINES Negative (1000ng/ml); URINE BARBITURATES Negative (200ng/ml); URINE BENZODIAZEPINES Negative (200ng/ml); URINE CANNABINOIDS (THC) Positive (50ng/ml); URINE COCAINE Positive (300ng/ml); URINE METHADONE Negative (300ng/ml); URINE OPIATES Negative (300ng/ml); URINE PHENCYCLIDINE Negative (25ng/ml)
[2022-04-11 11:41] LABS: RBC 0-2 rbc/hpf (0-2); WBC 0-2 wbc/hpf (0-5)
== END 2022-04-11 16:35 ==
LOC: ED 04:41
PROVIDERS: Internal Medicine
DX: F43.21 Adjustment disorder with depressed mood (principal); Z98.890 Other specified postprocedural states; F14.10 Cocaine abuse, uncomplicated; F12.10 Cannabis abuse, uncomplicated; F17.200 Nicotine dependence, unspecified, uncomplicated; F19.10 Other psychoactive substance abuse, uncomplicated; Z20.822 Contact with and (suspected) exposure to COVID-19; Z79.899 Other long term (current) drug therapy

== ENCOUNTER 2022-05-25 23:53 | Emergency (ER) | payer OTHER ==
[~2022-05-25] VITALS: Ht 182.8 cm; Wt 67.7 kg
[2022-05-26] MEDS ORDERED: HYDROXYZINE PAM50 MG PO (00:05)
[2022-05-26] MEDS ORDERED: MELATONIN3 MG PO (00:07)
[2022-05-26 00:33] LABS: BASO # 0.1 10*3/uL (0.0-0.1); BASO % 0.8 % (0.0-1.0); EOS # 0.3 10*3/uL (0.0-0.4); EOS % 3.2 % (1.0-4.0); HEMATOCRIT 44.4 % (42.0-52.0); LYMPH # 2.8 10*3/uL (1.3-4.4); LYMPH % 26.6 % (27.0-41.0); MEAN CELL VOLUME 89.2 fl (80.0-94.0); MEAN CORPUSCULAR HGB 29.1 pg (27.0-31.0); MEAN CORPUSCULAR HGB CONC 32.7 g/dl (33.0-37.0); MEAN PLATELET VOLUME 8.6 fl (9.6-12.3); MONO # 0.8 10*3/uL (0.1-1.0); MONO % 7.8 % (3.0-9.0); NEUT # 6.4 10*3/uL (2.3-7.9); NEUT % 61.4 % (47.0-73.0); PLATELET COUNT AUTOMATED 354 10*3/uL (130-400); RED BLOOD COUNT 4.98 10*6/uL (4.50-5.90); RED CELL DISTRI WIDTH 14.6 % (0-14.5); WHITE BLOOD COUNT 10.5 10*3/uL (4.8-10.8)
[2022-05-26 00:46] LABS: BUN 10 mg/dl (9-23); CHLORIDE 95 mmol/L (98-107); POTASSIUM 3.8 mmol/L (3.4-5.1)
[2022-05-26] MEDS ORDERED: SEPTDS PO (03:59)
[2022-05-26] MEDS ORDERED: HYDROCODONE-AC1 EAC1 PO (03:59)
== END 2022-05-26 04:30 | disposition home or self-care (01) ==
LOC: ED 23:53
PROVIDERS: Internal Medicine
DX: I96 Gangrene, not elsewhere classified (principal); E87.1 Hypo-osmolality and hyponatremia; Z98.890 Other specified postprocedural states; F12.10 Cannabis abuse, uncomplicated; F14.10 Cocaine abuse, uncomplicated; F17.200 Nicotine dependence, unspecified, uncomplicated

== ENCOUNTER 2022-05-29 14:18 | Emergency (ER) | payer OTHER ==
[~2022-05-29] VITALS: Ht 182.8 cm; Wt 68.0 kg
[~2022-05-29 14:18] MED LIST changes: +HYDROCODONE-AC1 EAC1 PO; +HYDROXYZINE PAM50 MG PO; +MELATONIN3 MG PO
[2022-05-29 15:48] LABS: BASO # 0.1 10*3/uL (0.0-0.1); BASO % 1.1 % (0.0-1.0); EOS # 0.3 10*3/uL (0.0-0.4); EOS % 3.2 % (1.0-4.0); HEMATOCRIT 47.1 % (42.0-52.0); LYMPH % 24.8 % (27.0-41.0); MEAN CELL VOLUME 88.5 fl (80.0-94.0); MEAN CORPUSCULAR HGB 29.7 pg (27.0-31.0); MEAN CORPUSCULAR HGB CONC 33.5 g/dl (33.0-37.0); MEAN PLATELET VOLUME 8.7 fl (9.6-12.3); MONO # 0.7 10*3/uL (0.1-1.0); MONO % 8.1 % (3.0-9.0); NEUT # 5.1 10*3/uL (2.3-7.9); NEUT % 62.4 % (47.0-73.0); PLATELET COUNT AUTOMATED 386 10*3/uL (130-400); RED BLOOD COUNT 5.32 10*6/uL (4.50-5.90); RED CELL DISTRI WIDTH 14.6 % (0-14.5); WHITE BLOOD COUNT 8.2 10*3/uL (4.8-10.8)
[2022-05-29 16:10] LABS: ALKALINE PHOSPHATASE 85 U/L (46-116); BUN 6 mg/dl (9-23); CHLORIDE 101 mmol/L (98-107); POTASSIUM 4.5 mmol/L (3.4-5.1); TOTAL PROTEIN 7.9 gm/dL (6.0-8.0)
[2022-05-29 16:11] LABS: SGPT/ALT < 7 U/L (10-49)
[2022-05-29] MEDS ORDERED: DOXYCYCLINE HY100 M3 PO (17:01)
[2022-05-29] MEDS ORDERED: CEPHALEXIN500 M1 PO (17:01)
== END 2022-05-29 17:23 | disposition home or self-care (01) ==
LOC: ED 14:18
PROVIDERS: Family Medicine
DX: L03.011 Cellulitis of right finger (principal); Z98.890 Other specified postprocedural states; F17.200 Nicotine dependence, unspecified, uncomplicated; F14.10 Cocaine abuse, uncomplicated; F12.10 Cannabis abuse, uncomplicated; F19.10 Other psychoactive substance abuse, uncomplicated

== ENCOUNTER 2024-08-01 16:44 | Emergency (ER) | payer MEDICARE, MEDICAID ==
[~2024-08-01] VITALS: Ht 182.8 cm; Wt 68.0 kg
[~2024-08-01 16:44] MED LIST changes: +DOXYCYCLINE HY100 M3 PO
[2024-08-01] MEDS ORDERED: Ondansetron Hydrochloride 4 MG/2 ML VIAL IV ONE (17:45)
[2024-08-01] MEDS ORDERED: SODIUM CHLORIDE 0.9% 10 ML VIAL IV ONE (18:30)
[2024-08-01] MEDS ORDERED: Metoclopramide Hydrochloride 10 MG/2 ML VIAL IV ONE (18:30)
[2024-08-01] MEDS ORDERED: SODIUM CHLORIDE 0.9% 1,000 ML IV ONE (18:55)
[2024-08-01] MEDS ORDERED: Lidocaine Hydrochloride 2% 10 ML AMP IM ONE (21:40)
[2024-08-01] MEDS ORDERED: REGLAN10 M1 PO (22:39)
== END 2024-08-01 22:45 | disposition home or self-care (01) ==
LOC: ED 16:44
DX: R51.9 Headache, unspecified (principal); M43.6 Torticollis; R20.0 Anesthesia of skin; R13.10 Dysphagia, unspecified; R20.2 Paresthesia of skin; H53.8 Other visual disturbances; F17.210 Nicotine dependence, cigarettes, uncomplicated; Z79.899 Other long term (current) drug therapy; Z89.511 Acquired absence of right leg below knee